=== PATIENT | male | born 1950 | race Caucasian/White ===

== ENCOUNTER → 2016-08-22 | Outpatient (CLI) | payer MEDICARE, BC ==
[2016-08-22 14:52] LABS: Blood Urea Nitrogen 24 mg/dL (9-20); Non-African American GFR(MDRD) >60 (>60 ml/min/1.73 sqM)
--- NOTE | 2016-08-22 16:04 | CT ---
EXAMINATION TYPE: CT urogram wo/w con DATE OF EXAM: 08/22/2016 3:36 PM COMPARISON: NONE HISTORY: Microscopic hematuria CT DLP: 2947.7 mGycm Automated exposure control for dose reduction was used. CONTRAST: Performed with IV Contrast, patient injected with 100 mL of Omnipaque 350. TECHNIQUE: Axial images 5 mm thick sections. Reconstructed images in the coronal plane. Delayed image s were obtained. Three-D reconstructed images of the collecting systems was performed. This was perfo rmed on a separate computer by the technologist. FINDINGS: Limited CT sections are obtained the lung bases which are clear CT ABDOMEN: Liver spleen pancreas gallbladder and adrenal glands appear normal. Aorta and inferior ve na cava are unremarkable. Kidneys appear normal without obvious masses or cysts. Loops of bowel witho ut contrast appear normal. Attention is paid to the renal collecting system. No hydronephrosis is evident. Ureters follow a norm al caliber course and contour to the urinary bladder. Urinary bladder fills normally. The distal left ureter is not well visualized during this exam. No dilated ureter however is evident. No suspicious filling defects are evident. IMPRESSION: 1. Visualized renal collecting system is unremarkable.
== END | disposition home or self-care (01) ==
LOC: RADCTMAIN 14:13
PROVIDERS: ATTEND Urology
DX: R31.29 Other microscopic hematuria (principal)
CPT/HCPCS: 82565; 84520; 74178; 74400; Q9967

== ENCOUNTER 2019-09-14 00:46 | Inpatient (IN) | payer MEDICARE ==
--- NOTE | 2019-09-14 00:53 | ED ---
Arrhythmia/Palpitations HPI - General Stated Complaint: abn pulse rate Time Seen by Provider: 09/14/19 00:50 - History of Present Illness Initial Comments: Sergio is a pleasant 69-year-old woman with no significant cardiac history who presents the ER today as a transfer from outside facility. Patient presents earlier in the evening he could feel his heart racing, he attempted check his blood pressure and noted that his pulse was in the 140s at which time he sought care at an outside hospital was found to be in new onset atrial fibrillation. Patient was started on heparin and low-dose Cardizem. Patient's heart rate improving with subsequent transferred here for evaluation by cardiology. does note that he was admitted to an outside hospital last month for evaluation of dizziness and lightheadedness, during that evaluation he was noted to be bradycardic while sleeping but no other arrhythmias were identified. - Related Data Allergies Allergy/AdvReac Type Severity Reaction Status Date / Time cat dander Allergy Itching Verified 09/14/19 01:12 ragweed pollen Allergy Wheezing Verified 09/14/19 01:11 Review of Systems ROS Statement: Those systems with pertinent positive or pertinent negative responses have been documented in the HPI. ROS Other: All systems not noted in ROS Statement are negative. General Exam - General Exam Comments Initial Comments: Physical Exam GENERAL: Patient is well-developed and well-nourished. Patient is nontoxic and well- hydrated and is in no distress. HENT: Normocephalic, Atraumatic. EYES: PERRL, EOMI PULMONARY: Unlabored respirations. No audible rales rhonchi or wheezing was noted. CARDIOVASCULAR: Irregularly irregular ABDOMEN: Soft and nontender with normal bowel sounds. SKIN: Skin is clear with no lesions or rashes and otherwise unremarkable. : Deferred NEUROLOGIC: Patient is alert and oriented x3. Moving all extremities spontaneously MUSCULOSKELETAL: Normal extremities with adequate strength and full range of motion. No lower extremity swelling or edema. No calf tenderness. PSYCHIATRIC: Normal psychiatric evaluation. Course Vital Signs 09/14/19 09/14/19 09/14/19 01:04 01:10 02:05 Temperature 98.7 F Pulse Rate 81 71 Pulse Rate [ 81 Reaming Machine Tender ] Respiratory 18 16 Rate Blood Pressure 124/80 117/82 O2 Sat by Pulse 96 96 Oximetry 09/14/19 09/14/19 02:35 03:05 Temperature Pulse Rate 67 71 Pulse Rate [ Reaming Machine Tender ] Respiratory 16 16 Rate Blood Pressure 122/84 128/77 O2 Sat by Pulse 96 97 Oximetry EKG Findings - EKG Comments: EKG Findings:: EKG was obtained due to new onset atrial fibrillation, EKG obtained at 1:08 AM, rate is 69 rhythm is narrow complex irregularly irregular consistent with atrial fibrillation. No acute ST elevations or depressions no evidence of acute ischemia or infarction. Medical Decision Making - Medical Decision Making The patient was seen and evaluated history is obtained from the patient and transferring facility 69-year-old gentleman no cardiac history presents at outside facility with new onset atrial fibrillation and RVR, rate has been controlled with IV Cardizem, patient is heparinized Patient currently asymptomatic with no complaints Repeat labs will be ordered, Cardizem continued, heparin continued without boluses he is arty received bolus prior to arrival Repeat labs were reviewed, patient be continued on heparin Patient care was discussed with Dr. Smith who accepts the admission with consult to cardiology - Lab Data Result diagrams: 09/14/19 01:17 09/14/19 01:17 Lab Results 09/14/19 09/14/19 09/14/19 Range/Units 01:17 01:17 01:17 WBC 6.7 (3.8-10.6) k/uL RBC 4.84 (4.30-5.90) m/uL Hgb 16.4 (13.0-17.5) gm/dL Hct 48.3 (39.0-53.0) % MCV 99.8 (80.0-100.0) fL MCH 33.9 (25.0-35.0) pg MCHC 33.9 (31.0-37.0) g/dL RDW 13.4 (11.5-15.5) % Plt Count 190 (150-450) k/uL Neutrophils % 47 % Lymphocytes % 33 % Monocytes % 12 % Eosinophils % 5 % Basophils % 1 % Neutrophils # 3.1 (1.3-7.7) k/uL Lymphocytes # 2.2 (1.0-4.8) k/uL Monocytes # 0.8 (0-1.0) k/uL Eosinophils # 0.3 (0-0.7) k/uL Basophils # 0.0 (0-0.2) k/uL PT (9.0-12.0) sec INR (<1.2) APTT (22.0-30.0) sec Sodium 138 (137-145) mmol/L Potassium 3.7 (3.5-5.1) mmol/L Chloride 106 (98-107) mmol/L Carbon Dioxide 23 (22-30) mmol/L Anion Gap 9 mmol/L BUN 28 H (9-20) mg/dL Creatinine 0.92 (0.66-1.25) mg/dL Est GFR (CKD-EPI)AfAm >90 (>60 ml/min/1.73 sqM) Est GFR (CKD-EPI)NonAf 85 (>60 ml/min/1.73 sqM) Glucose 115 H (74-99) mg/dL Calcium 9.2 (8.4-10.2) mg/dL Magnesium 2.2 (1.6-2.3) mg/dL Total Bilirubin 0.5 (0.2-1.3) mg/dL AST 41 (17-59) U/L ALT 28 (4-49) U/L Alkaline Phosphatase 79 (38-126) U/L Troponin I (0.000-0.034) ng/mL NT-Pro-B Natriuret Pep 262 pg/mL Total Protein 6.9 (6.3-8.2) g/dL Albumin 4.0 (3.5-5.0) g/dL 09/14/19 09/14/19 Range/Units 01:17 01:17 WBC (3.8-10.6) k/uL RBC (4.30-5.90) m/uL Hgb (13.0-17.5) gm/dL Hct (39.0-53.0) % MCV (80.0-100.0) fL MCH (25.0-35.0) pg MCHC (31.0-37.0) g/dL RDW (11.5-15.5) % Plt Count (150-450) k/uL Neutrophils % % Lymphocytes % % Monocytes % % Eosinophils % % Basophils % % Neutrophils # (1.3-7.7) k/uL Lymphocytes # (1.0-4.8) k/uL Monocytes # (0-1.0) k/uL Eosinophils # (0-0.7) k/uL Basophils # (0-0.2) k/uL PT 10.3 (9.0-12.0) sec INR 1.0 (<1.2) APTT 40.1 H (22.0-30.0) sec Sodium (137-145) mmol/L Potassium (3.5-5.1) mmol/L Chloride (98-107) mmol/L Carbon Dioxide (22-30) mmol/L Anion Gap mmol/L BUN (9-20) mg/dL Creatinine (0.66-1.25) mg/dL Est GFR (CKD-EPI)AfAm (>60 ml/min/1.73 sqM) Est GFR (CKD-EPI)NonAf (>60 ml/min/1.73 sqM) Glucose (74-99) mg/dL Calcium (8.4-10.2) mg/dL Magnesium (1.6-2.3) mg/dL Total Bilirubin (0.2-1.3) mg/dL AST (17-59) U/L ALT (4-49) U/L Alkaline Phosphatase (38-126) U/L Troponin I <0.012 (0.000-0.034) ng/mL NT-Pro-B Natriuret Pep pg/mL Total Protein (6.3-8.2) g/dL Albumin (3.5-5.0) g/dL Disposition Clinical Impression: New onset a-fib Disposition: ADMITTED IP TO THIS [facility] Condition: Serious Is patient prescribed a controlled substance at d/c from ED?: No
[2019-09-14] MEDS ORDERED: DILTIAZEM 125 MG in SODIUM CHLORIDE 0.9% 100 ML IV SCH (01:00)
[2019-09-14] MEDS ORDERED: HEPARIN SOD,PORK IN 0.45% NACL 25,000 UNIT in 0.45% NACL 1 250ML.BAG IV SCH (01:00)
[2019-09-14 01:39] LABS: ALT 28 U/L (4-49); AST 41 U/L (17-59); African American GFR (CKD) >90 (>60 ml/min/1.73 sqM); Alkaline Phosphatase 79 U/L (38-126); Anion Gap 9 mmol/L; Blood Urea Nitrogen 28 mg/dL (9-20); Calcium 9.2 mg/dL (8.4-10.2); Carbon Dioxide 23 mmol/L (22-30); Chloride 106 mmol/L (98-107); Glucose 115 mg/dL (74-99); Magnesium 2.2 mg/dL (1.6-2.3); Non-African American GFR(CKD) 85 (>60 ml/min/1.73 sqM); Potassium 3.7 mmol/L (3.5-5.1); Sodium 138 mmol/L (137-145); Total Bilirubin 0.5 mg/dL (0.2-1.3); Total Protein 6.9 g/dL (6.3-8.2)
[2019-09-14 01:41] LABS: Basophils % (A) 1 %; Eosinophils # (A) 0.3 k/uL (0-0.7); Eosinophils % (A) 5 %; HCT 48.3 % (39.0-53.0); HGB 16.4 gm/dL (13.0-17.5); Lymphocytes # (A) 2.2 k/uL (1.0-4.8); Lymphocytes % (A) 33 %; MCH 33.9 pg (25.0-35.0); MCHC 33.9 g/dL (31.0-37.0); MCV 99.8 fL (80.0-100.0); Mean Platelet Volume 7.3; Monocytes # (A) 0.8 k/uL (0-1.0); Monocytes % (A) 12 %; Neutrophils # (A) 3.1 k/uL (1.3-7.7); Neutrophils % (A) 47 %; Platelet Count 190 k/uL (150-450); RBC 4.84 m/uL (4.30-5.90); RDW 13.4 % (11.5-15.5); WBC 6.7 k/uL (3.8-10.6)
[2019-09-14 01:46] LABS: Partial Thromboplastin Time 40.1 sec (22.0-30.0); Prothrombin Time 10.3 sec (9.0-12.0)
[2019-09-14] MEDS ORDERED: NALOXONE 0.4 MG/ML 1 ML VIAL IV PRN (02:45)
--- NOTE | 2019-09-14 04:09 | P.HPIM ---
History of Present Illness H&P Date: 09/14/19 Chief Complaint: Heart racing The patient is a 69-year-old male with a past medical history of essential hypertension and dyslipidemia who presents to the ER after being transferred here from [facility] unit earlier presented today at around 8 PM with chief complaint of heart racing. The patient reports sensation of his heart racing but denies any chest pain, denies shortness of breath, denies lightheadedness dizziness or presyncope, denies lower extremity swelling. The patient mentions that he has been in his usual state of health with the exception of a mild case of vertigo a few weeks ago for which she was started on Antivert with that time he had presented with dizziness and lightheadedness and was noted to be bradycardic, no arrhythmias were identified at that time. The patient reported that he attempted to use his home blood pressure cuff and realizes blood pressure was normal but felt that his pulse was racing. Patient was seen and evaluated at [facility] and was started on Cardizem and heparin and transferred here for cardiology consultation, EKG here showed atrial fibrillation with a heart rate of 69, troponin was less than 0.012 and NT proBNP was 262 Review of Systems Pertinent positives per HPI all other review of system otherwise negative Medications and Allergies Allergies Allergy/AdvReac Type Severity Reaction Status Date / Time cat dander Allergy Itching Verified 09/14/19 01:12 ragweed pollen Allergy Wheezing Verified 09/14/19 01:11 Physical Exam Vitals: Vital Signs Temp Pulse Pulse Resp BP Pulse Ox 09/14/19 03:05 71 16 128/77 97 09/14/19 02:35 67 16 122/84 96 09/14/19 02:05 71 16 117/82 96 09/14/19 01:10 81 09/14/19 01:04 98.7 F 81 18 124/80 96 Intake and Output 09/13/19 09/13/19 09/14/19 14:59 22:59 06:59 Other: Weight 93.667 kg Constitutional: No acute distress, conversant, pleasant Eyes: Anicteric sclerae, moist conjunctiva, no lid-lag, PERRLA ENMT: NC/AT,Oropharynx clear, no erythema, exudates Neck:Supple, FROM, no masses, or JVD, No carotid bruits; No thyromegaly Lungs: Clear to auscultation, Clear to percussion, Normal respiratory effort, no accessory muscle use Cardiovascular: Irregularly irregular, No murmurs, gallops, or rubs no peripheral edema Abdominal: Soft Nontender, nom distended, no guarding, no rebound or rigidity, Normoactive bowel sounds No hepatomegaly, No splenomegaly, No palpable mass No abdominal wall hernia noted Skin: Normal temperature, tone, texture, turgor, No induration No subcutaneous nodules, No rash, lesions, No ulcers Extremities:No digital cyanosis No clubbing, Pedal pulses intact and symmetrical Radial pulses intact and symmetrical Normal gait and station, No calf tenderness Psychiatric: Alert and oriented to person, place and time, Appropriate affect Intact judgement Neuro: Muscles Strength 5/5 in all 4 extremities, Sensation to light touch grossly present throughout, Cranial nerves II-XII grossly intact. No focal sensory deficits Results CBC & Chem 7: 09/14/19 01:17 09/14/19 01:17 Labs: Abnormal Lab Results - Last 24 Hours (Table) 09/14/19 09/14/19 Range/Units 01:17 01:17 APTT 40.1 H (22.0-30.0) sec BUN 28 H (9-20) mg/dL Glucose 115 H (74-99) mg/dL Assessment and Plan Assessment: New-onset atrial fibrillation Essential hypertension Hyperlipidemia Plan: The patient is admitted anticipated greater than 2 midnight stay with new onset A. fib now with rate controlled on Cardizem drip after being started on heparin and transferred here. The patient is continued on Cardizem and heparin, will check a TSH order echocardiogram and follow-up any further recommendations by cardiology. Patient will likely transition to DOACS in the morning for CVA prophylaxis as he has [id number] VASC score of 2. Continue to follow patient's clinical course. CODE STATUS: Full code Discussed plan of care with: Patient and his Anticipated discharge place: Home Greater than 60 minutes was spent in evaluation of this complex patient
[2019-09-14 07:44] VITALS: RESP 18
--- NOTE | 2019-09-14 10:47 | P.CRDCN ---
History of Present Illness Consult date: 09/14/19 Requesting physician: Lei Smith Consult reason: atrial fibrillation Chief complaint: Palpitations History of present illness: This is a pleasant 69-year-old gentleman with history of hypertension, hyperlipidemia, diet-controlled diabetes, nonsmoker, has one alcoholic beverage per day. 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 He states that he was sitting watching TV and noticed his heart racing fast, he does have a blood pressure cuff at his bedside, it documented that his heart rate was up in the 120s, and then down to the 100 range and then back up into the 120s. He was quite surprised, as he was in the hospital in July with symptoms of severe dizziness and was noted at that time to be quite bradycardic according to him. He was discharged from [facility] at that time with the diagnosis of vertigo. Patient presented to [facility] and was ultimately transferred here for further evaluation and treatment. His blood pressure at [place] 156/90 with a heart rate in the 90s, afebrile. White blood cell count 6.5, hemoglobin 16, hematocrit 46.6, platelet count 170, sodium 139, potassium 3.7, chloride 103, CO2 26, BUN 27, creatinine 1.1. Magnesium 2.2, BNP level 138, troponin 0.012, TSH 1.8. Chest x-ray was unremarkable. Patient was initiated on IV Cardizem and IV heparin at [facility] and subsequently transferred here for further treatment. At the time of my examination the patient was seen in the emergency room continues to be in atrial fibrillation, his heart rate this morning is in the 60s while on the Cardizem drip at 5 mg per hour. He overall feels well, back to his normal self. Blood pressure 113/78, heart rate in the 60s, 97% on room air. White blood cell count 6.7, hemoglobin 16.4, platelet count 190. Sodium 138, potassium 3.7, BUN 28, creatinine 0.9, magnesium 2.2. Troponin 0.012. TSH 2.7. Past Medical History Past Medical History: Asthma, COPD, Diabetes Mellitus, Hyperlipidemia, Hypertension, Pneumonia Additional Past Medical History / Comment(s): Pt admitted about one month ago to [facility] with vertigo/lightheadedness found to have bradycardia with sleep, NIDDM diet controlled, bronchitis, trace hematuria, cervical pinched nerve/affects R shoulder-pain, L knee pain past month. History of Any Multi-Drug Resistant Organisms: None Reported Past Surgical History: Orthopedic Surgery, Tonsillectomy Additional Past Surgical History / Comment(s): Cystoscopy, R knee patella fracture with surgical repair, colonoscopy. Past Anesthesia/Blood Transfusion Reactions: No Reported Reaction Additional Past Anesthesia/Blood Transfusion Reaction / Comment(s): Clausterphobia Additional Psychological History / Comment(s): Clausterphobia. Pt resides with his spouse. He is independent. Smoking Status: Former smoker Past Alcohol Use History: Daily Additional Past Alcohol Use History / Comment(s): Pt started smoking in 1966 and quit in 2011. He drinks one cocktail a day. Past Drug Use History: None Reported - Past Family History Mother Family Medical History: COPD, Dementia Additional Family Medical History / Comment(s): Mother is . She was a smoker. Father Family Medical History: Cancer Additional Family Medical History / Comment(s): Father from lung cancer- he was a smoker and had ETOH abuse. Medications and Allergies Home Medications Medication Instructions Recorded Confirmed Type Ascorbic Acid [Vitamin C] 1,000 mg PO DAILY 09/14/19 09/14/19 History Aspirin 81 mg PO DAILY 09/14/19 09/14/19 History Cholecalciferol [Vitamin D3 (25 1,000 unit PO DAILY 09/14/19 09/14/19 History Mcg = 1000 Iu)] Cyanocobalamin (Vitamin B-12) 1,000 mcg PO DAILY 09/14/19 09/14/19 History [Vitamin B-12] Lisinopril [Zestril] 5 mg PO DAILY 09/14/19 09/14/19 History [place]-3 Fatty Acids/Fish Oil [Fish 1 cap PO HS 09/14/19 09/14/19 History Oil 1,000 mg Softgel] [place]-3 Fatty Acids/Fish Oil [Fish 2 cap PO QAM 09/14/19 09/14/19 History Oil 1,000 mg Softgel] Pravastatin Sodium [Pravachol] 20 mg PO HS 09/14/19 09/14/19 History [place] 1,000 mg PO QAM 09/14/19 09/14/19 History [place] 500 mg PO HS 09/14/19 09/14/19 History Allergies Allergy/AdvReac Type Severity Reaction Status Date / Time cat dander Allergy Itching Verified 09/14/19 07:08 ragweed pollen Allergy Wheezing Verified 09/14/19 07:08 Physical Exam Vitals: Vital Signs Temp Pulse Pulse Resp BP Pulse Ox 09/14/19 07:43 98.2 F 62 18 113/79 97 09/14/19 06:09 56 L 16 121/83 97 09/14/19 05:35 97.8 F 63 19 95/61 95 09/14/19 03:05 71 16 128/77 97 09/14/19 02:35 67 16 122/84 96 09/14/19 02:05 71 16 117/82 96 09/14/19 01:10 81 09/14/19 01:04 98.7 F 81 18 124/80 96 Intake and Output 09/13/19 09/14/19 09/14/19 22:59 06:59 14:59 Other: Weight 93.667 kg PHYSICAL EXAMINATION: GENERAL: 69-year-old gentleman in no acute distress at the time of my examination HEENT: Head is atraumatic, normocephalic. Pupils equal, round. Sclera anicter ic. Conjunctiva are clear. Mucous membranes of the mouth are moist. Neck is supple. There is no elevated jugular venous pressure. No carotid bruit is heard. HEART EXAMINATION: Heart S1 and S2 irregularly irregular CHEST EXAMINATION: Lungs are clear to auscultation and precussion. No chest wall tenderness is noted on palpation or with deep breathing. ABDOMEN: Soft, nontender. Bowel sounds are heard. No organomegaly noted. EXTREMITIES: 2+ peripheral pulses with no evidence of peripheral edema and no calf tenderness noted. NEUROLOGIC patient is awake, alert and oriented 3 . . Results 09/14/19 01:17 09/14/19 01:17 Cardiac Enzymes 09/14/19 09/14/19 Range/Units 01:17 01:17 AST 41 (17-59) U/L Troponin I <0.012 (0.000-0.034) ng/mL Coagulation 09/14/19 09/14/19 Range/Units 01:17 06:52 PT 10.3 (9.0-12.0) sec APTT 40.1 H 39.0 H (22.0-30.0) sec CBC 09/14/19 Range/Units 01:17 WBC 6.7 (3.8-10.6) k/uL RBC 4.84 (4.30-5.90) m/uL Hgb 16.4 (13.0-17.5) gm/dL Hct 48.3 (39.0-53.0) % Plt Count 190 (150-450) k/uL Comprehensive Metabolic Panel 09/14/19 Range/Units 01:17 Sodium 138 (137-145) mmol/L Potassium 3.7 (3.5-5.1) mmol/L Chloride 106 (98-107) mmol/L Carbon Dioxide 23 (22-30) mmol/L BUN 28 H (9-20) mg/dL Creatinine 0.92 (0.66-1.25) mg/dL Glucose 115 H (74-99) mg/dL Calcium 9.2 (8.4-10.2) mg/dL AST 41 (17-59) U/L ALT 28 (4-49) U/L Alkaline Phosphatase 79 (38-126) U/L Total Protein 6.9 (6.3-8.2) g/dL Albumin 4.0 (3.5-5.0) g/dL Current Medications Generic Name Dose Route Start Last Admin Trade Name Freq PRN Reason Stop Dose Admin Heparin Sodium/Sodium Chloride 250 mls @ 10.004 mls/hr 09/14/19 01:00 09/14/19 01:15 25,000 unit/ Sodium Chloride IV 10.68 units/kg/hr .Q24H LANDRY 10.004 mls/hr Administration Protocol 10.68 UNITS/KG/HR Diltiazem HCl 125 mg/ Sodium 125 mls @ 5 mls/hr 09/14/19 01:00 09/14/19 01:18 Chloride IV 5 mg/hr .Q24H LANDRY 5 mls/hr Administration 5 MG/HR Naloxone HCl 0.2 mg 09/14/19 02:45 Narcan IV Q2M PRN Opioid Reversal Intake and Output 09/13/19 09/14/19 09/14/19 22:59 06:59 14:59 Other: Weight 93.667 kg 09/14/19 01:17 09/14/19 01:17 EKG Interpretations (text) EKG shows atrial fibrillation with a rapid ventricular response Assessment and Plan Plan: Assessment and plan #1 atrial fibrillation with rapid ventricular response, persistent, of new onset for the patient #2 hypertension #3 diet-controlled diabetes #4 hyperlipidemia Plan We will discontinue the IV Cardizem and start the patient on a beta jason. The patient and his have also been educated regarding the importance of ant icoagulation for stroke prevention, we will start the patient on Eliquis and discontinue the IV heparin. Check a TSH level and obtain an echocardiogram with Doppler study. Further recommendations to follow. DNP note has been reviewed, I agree with a documented findings and plan of care. Patient was seen and examined.
--- NOTE | 2019-09-14 11:00 | ECHOF ---
Referral Reason:A. fib with RVR MEASUREMENTS -------- HEIGHT: 182.9 cm WEIGHT: 93.4 kg BP: RVIDd: 2.9 cm (< 3.3) IVSd: 1.3 cm (0.6 - 1.1) LVIDd: 4.4 cm (3.9 - 5.3) LVPWd: 1.1 cm (0.6 - 1.1) IVSs: 1.5 cm LVIDs: 3.3 cm LVPWs: 1.4 cm LA Diam: 3.8 cm (2.7 - 3.8) Ao Diam: 3.2 cm (2.0 - 3.7) AV Cusp: 2.3 cm (1.5 - 2.6) MV EXCURSION: 20.130 mm (> 18.000) MV EF SLOPE: 99 mm/s (70 - 150) EPSS: 0.2 cm MV E Mykel: 0.61 m/s MV DecT: 166 ms MV A Mykel: 0.02 m/s MV E/A Ratio: 33.23 RAP: 5.00 mmHg RVSP: 15.95 mmHg FINDINGS -------- The rhythm appears to be atrial flutter. This was a technically adequate study. The left ventricular size is normal. There is mild concentric left ventricular hypertrophy. Overa ll left ventricular systolic function is low-normal with, an EF between 50 - 55 %. The right ventricle is normal in size. The left atrial size is normal. The right atrial size is normal. There is mild aortic valve sclerosis. There is no evidence of aortic regurgitation. Mild mitral annular calcification present. Mild mitral regurgitation is present. Mild tricuspid regurgitation present. Right ventricular systolic pressure is normal at < 35 mmHg. There is no evidence of pulmonary hypertension. There is no pulmonic regurgitation present. The aortic root size is normal. Echo free space represents a pericardial fat pad. CONCLUSIONS -------- 1. The rhythm appears to be atrial flutter. 2. This was a technically adequate study. 3. The left ventricular size is normal. 4. There is mild concentric left ventricular hypertrophy. 5. Overall left ventricular systolic function is low-normal with, an EF between 50 - 55 %. 6. The right ventricle is normal in size. 7. The left atrial size is normal. 8. The right atrial size is normal. 9. There is mild aortic valve sclerosis. 10. Mild mitral annular calcification present. 11. Mild mitral regurgitation is present. 12. Mild tricuspid regurgitation present. 13. Right ventricular systolic pressure is normal at < 35 mmHg. 14. There is no evidence of pulmonary hypertension. 15. There is no pulmonic regurgitation present. 16. The aortic root size is normal. 17. Echo free space represents a pericardial fat pad. PAINT [employer]ORATORY TECHNICIAN: Valencia Andres RDCS
--- NOTE | 2019-09-14 11:19 | P.PN ---
Progress Note - Text Progress Note Date: 09/14/19 Patient was seen and examined 69-year-old male with hypertension and dietary controlled diabetes Comes in due to heart racing and palpitations. Was found to have new onset A. fib currently rate controlled. Plan for discharging patient on Eliquis for stroke prophylaxis, metoprolol for rate control, and patient to continue lisinopril for blood pressure control We'll continue to monitor the patient overnight possible discharge in the morning
[2019-09-14] MEDS: APIXABAN 5 MG TAB PO SCH ×2 (12:20→20:09)
[2019-09-14] MEDS: LISINOPRIL 5 MG TAB PO SCH (12:20)
[2019-09-14] MEDS: METOPROLOL TARTRATE 25 MG TAB PO SCH ×2 (12:20→20:09)
[2019-09-14] MEDS ORDERED: PRAVASTATIN SODIUM 20 MG TAB PO SCH (21:00)
[2019-09-15 06:46] LABS: Basophils % (A) 0 %; Eosinophils # (A) 0.3 k/uL (0-0.7); Eosinophils % (A) 4 %; HCT 52.3 % (39.0-53.0); HGB 17.3 gm/dL (13.0-17.5); Lymphocytes # (A) 1.8 k/uL (1.0-4.8); Lymphocytes % (A) 26 %; MCH 33.5 pg (25.0-35.0); MCHC 33.1 g/dL (31.0-37.0); MCV 101.2 fL (80.0-100.0); Macrocytosis Slight; Mean Platelet Volume 7.3; Monocytes # (A) 0.7 k/uL (0-1.0); Monocytes % (A) 11 %; Neutrophils # (A) 3.8 k/uL (1.3-7.7); Neutrophils % (A) 56 %; Platelet Count 188 k/uL (150-450); RBC 5.17 m/uL (4.30-5.90); RDW 13.3 % (11.5-15.5); WBC 6.9 k/uL (3.8-10.6)
[2019-09-15 07:02] LABS: Calcium 9.5 mg/dL (8.4-10.2); Potassium 4.5 mmol/L (3.5-5.1)
[2019-09-15] MEDS ORDERED: ASPIRIN 81 MG PO SCH (09:00)
[2019-09-15] MEDS: LISINOPRIL 5 MG TAB PO SCH (10:23)
[2019-09-15] MEDS: METOPROLOL TARTRATE 25 MG TAB PO SCH (10:23)
[2019-09-15] MEDS: APIXABAN 5 MG TAB PO SCH (10:24)
[2019-09-15 11:45] VITALS: BP 143/81; PULSE 85; TEMP 98.3
--- NOTE | 2019-09-15 12:01 | P.PN ---
Subjective Progress Note Date: 09/15/19 This is a pleasant 69-year-old gentleman with history of hypertension, hyperlipidemia, diet-controlled diabetes, nonsmoker, has one alcoholic beverage per day. 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 He states that he was sitting watching TV and noticed his heart racing fast, he does have a blood pressure cuff at his bedside, it documented that his heart rate was up in the 120s, and then down to the 100 range and then back up into the 120s. He was quite surprised, as he was in the hospital in July with symptoms of severe dizziness and was noted at that time to be quite bradycardic according to him. He was discharged from [facility] at t hat time with the diagnosis of vertigo. Patient presented to [facility] and was ultimately transferred here for further evaluation and treatment. His blood pressure at [facility] 156/90 with a heart rate in the 90s, afebrile. White blood cell count 6.5, hemoglobin 16, hematocrit 46.6, platelet count 170, sodium 139, potassium 3.7, chloride 103, CO2 26, BUN 27, creatinine 1.1. Magnesium 2. 2, BNP level 138, troponin 0.012, TSH 1.8. Chest x-ray was unremarkable. Patient was initiated on IV Cardizem and IV heparin at [facility] and subsequently transferred here for further treatment. At the time of my examination the patient was seen in the emergency room continues to be in atrial fibrillation, his heart rate this morning is in the 60s while on the Cardizem drip at 5 mg per hour. He overall feels well, back to his normal self. Blood pressure 113/78, heart rate in the 60s, 97% on room air. White blood cell count 6.7, hemoglobin 16.4, platelet count 190. Sodium 138, potassium 3.7, BUN 28, creatinine 0.9, magnesium 2.2. Troponin 0.012. TSH 2.7. 09/15/2019 Patient was seen and examined this morning, continues to be in atrial fibrillation with a heart rate in the 70s to 80s. He feels well, he's been up ambulating in the hallway without any difficulty. Blood pressure 125/80 with a heart rate of 70, echocardiogram with Doppler study revealed a normal left ve ntricular systolic function. Patient is on Eliquis 5 mg one tablet by mouth twice a day along with metoprolol 25 mg by mouth twice a day which we will continue. From our perspective he may be able to be discharged home today, we'll make him a follow-up appointment to see Dr. Martinez in the office post discharge. Objective - Vital Signs Vital signs: Vital Signs Temp 98.3 F 09/15/19 11:41 Pulse 85 09/15/19 11:41 Resp 18 09/15/19 11:41 BP 143/81 09/15/19 11:41 Pulse Ox 98 09/15/19 11:41 Intake & Output 09/14/19 09/15/19 09/15/19 18:59 06:59 18:59 Intake Total 600 Balance 600 Weight 93.667 kg 103.1 kg Intake: Oral 600 Other: # Voids 1 1 - Exam PHYSICAL EXAMINATION: GENERAL: 69-year-old gentleman in no acute distress at the time of my examination HEENT: Head is atraumatic, normocephalic. Pupils equal, round. Sclera anicteric. Conjunctiva are clear. Mucous membranes of the mouth are moist. Neck is supple. There is no elevated jugular venous pressure. No carotid bruit is heard. HEART EXAMINATION: Heart S1 and S2 irregularly irregular CHEST EXAMINATION: Lungs are clear to auscultation and precussion. No chest wall tenderness is noted on palpation or with deep breathing. ABDOMEN: Soft, nontender. Bowel sounds are heard. No organomegaly noted. EXTREMITIES: 2+ peripheral pulses with no evidence of peripheral edema and no calf tenderness noted. NEUROLOGIC patient is awake, alert and oriented 3 . - Labs CBC & Chem 7: 09/15/19 06:20 09/15/19 06:20 Labs: Abnormal Lab Results - Last 24 Hours (Table) 09/15/19 09/15/19 Range/Units 06:20 06:20 MCV 101.2 H (80.0-100.0) fL BUN 28 H (9-20) mg/dL Glucose 107 H (74-99) mg/dL Assessment and Plan Plan: Assessment and plan #1 atrial fibrillation with rapid ventricular response, persistent, of new onset for the patient #2 hypertension #3 diet-controlled diabetes #4 hyperlipidemia Plan From cardiology's perspective, patient may be able to be discharged home today. We'll make him a follow-up appointment in the office with Dr. Martinez post discharge. DNP note has been reviewed, I agree with a documented findings and plan of care. Patient was seen and examined.
--- NOTE | 2019-09-15 12:45 | P.DS ---
Providers Date of admission: 09/14/19 02:45 Attending physician: Lei Smith MD Consults: 09/14/19 02:49 Consult Physician Urgent Consulting Provider: [facility] Consult Reason/Comments: new onset afib Do you want consulting provider notified?: Yes, Notify in am Primary care physician: Conrad Verdugo [facility] Course: Final diagnosis at discharge A. fib with RVR new onset Hospital course The patient is a 69-year-old male with a past medical history of essential hypertension , dietary controlled diabetes, and dyslipidemia who presents to the ER after being transferred here from [facility] unit earlier presented today at around 8 PM with chief complaint of heart racing. The patient reports sensation of his heart racing but denies any chest pain, denies shortness of breath, denies lightheadedness dizziness or presyncope, denies lower extremity swelling. The patient mentions that he has been in his usual state of health with the exception of a mild case of vertigo a few weeks ago for which she was started on Antivert with that time he had presented with dizziness and lightheadedness and was noted to be bradycardic, no arrhythmias were identified at that time. The patient reported that he attempted to use his home blood pressure cuff and realizes blood pressure was normal but felt that his pulse was racing. Patient was seen and evaluated at [facility] and was started on Cardizem and heparin and transferred here for cardiology consultation, EKG here showed atrial fibrillation with a heart rate of 69, troponin was less than 0.012 and NT proBNP was 262 Patient was seen and examined Patient reports no chest pain or trouble breathing no further episodes of heart racing Constitutional: vital signs stable, Not in acute distress, pleasant, conversant Lungs: Clear to auscultation bilaterally, clear to percussion, normal respiratory effort Cardiovascular: Regular rate and rhythm, no murmurs, no gallops, no rubs, no peripheral edema Gastrointestinal: Soft, no tenderness to palpation bowel sounds positive Extremities: No digital cyanosis or clubbing, peripheral pulses palpable and equal , no calf muscle tenderness Psych: Alert, oriented to place, person and time, appropriate affect, intact judgment Follow-up with cardiology and primary care doctor discharging patient on Eliquis for stroke prophylaxis, metoprolol for rate c ontrol, and patient to continue lisinopril for blood pressure control echocardiogram showed LVEF 50-55% Consider outpatient sleep study 38 minutes were spent discharging this patient, and more than 50% of the time was spent in counseling the patient and family and in coordinating care. Procedures: Echocardiogram Patient Condition at Discharge: Serious Plan - Discharge Summary Discharge Rx Participant: No New Discharge Prescriptions: New Apixaban [Eliquis] 5 mg PO BID #60 tab Metoprolol Tartrate [Lopressor] 25 mg PO BID #60 tab Continue Cholecalciferol [Vitamin D3 (25 Mcg = 1000 Iu)] 1,000 unit PO DAILY Aspirin 81 mg PO DAILY Ascorbic Acid [Vitamin C] 1,000 mg PO DAILY [place] 1,000 mg PO QAM [place] 500 mg PO HS Natalia-3 Fatty Acids/Fish Oil [Fish Oil 1,000 mg Softgel] 2 cap PO QAM Natalia-3 Fatty Acids/Fish Oil [Fish Oil 1,000 mg Softgel] 1 cap PO HS Pravastatin Sodium [Pravachol] 20 mg PO HS Lisinopril [Zestril] 5 mg PO DAILY Cyanocobalamin (Vitamin B-12) [Vitamin B-12] 1,000 mcg PO DAILY Discharge Medication List Ascorbic Acid [Vitamin C] 1,000 mg PO DAILY 09/14/19 [History] Aspirin 81 mg PO DAILY 09/14/19 [History] Cholecalciferol [Vitamin D3 (25 Mcg = 1000 Iu)] 1,000 unit PO DAILY 09/14/19 [History] Cyanocobalamin (Vitamin B-12) [Vitamin B-12] 1,000 mcg PO DAILY 09/14/19 [History] Lisinopril [Zestril] 5 mg PO DAILY 09/14/19 [History] Natalia-3 Fatty Acids/Fish Oil [Fish Oil 1,000 mg Softgel] 1 cap PO HS 09/14/19 [History] Natalia-3 Fatty Acids/Fish Oil [Fish Oil 1,000 mg Softgel] 2 cap PO QAM 09/14/19 [History] Pravastatin Sodium [Pravachol] 20 mg PO HS 09/14/19 [History] [place] 1,000 mg PO QAM 09/14/19 [History] [place] 500 mg PO HS 09/14/19 [History] Apixaban [Eliquis] 5 mg PO BID #60 tab 09/15/19 [Rx] Metoprolol Tartrate [Lopressor] 25 mg PO BID #60 tab 09/15/19 [Rx] Follow up Appointment(s)/Referral(s): Solo Curtis MD [STAFF PHYSICIAN] - 1 Week Conrad Chen MD [Primary Care Provider] - 1-2 days Reena Dunham MD [STAFF PHYSICIAN] - 1 Week Patient Instructions/Handouts: A-fib (Atrial Fibrillation) (ED), Sleep Apnea (DC) Activity/Diet/Wound Care/Special Instructions: Eliquis filled at [facility] will be $45/month - free 30 day coupon applied. Discharge Disposition: HOME SELF-CARE Plan of Treatment: consider getting a sleep study
[2019-09-15] MEDS ORDERED: METOPROLOL TARTRATE 50 MG TAB PO SCH (21:00)
== END 2019-09-15 14:50 | disposition home or self-care (01) | DRG 310 ==
LOC: EC 00:46 → 3SCARD 02:45
PROVIDERS: ADMIT Family Medicine; ATTEND Family Medicine
DX: I48.91 Unspecified atrial fibrillation (principal); I10 Essential (primary) hypertension; E78.5 Hyperlipidemia, unspecified; E11.9 Type 2 diabetes mellitus without complications; J44.9 Chronic obstructive pulmonary disease, unspecified; Z79.01 Long term (current) use of anticoagulants; Z79.82 Long term (current) use of aspirin; Z79.899 Other long term (current) drug therapy; Z80.1 Family history of malignant neoplasm of trachea, bronchus and lung; Z82.5 Family history of asthma and other chronic lower respiratory diseases; Z87.891 Personal history of nicotine dependence; Z82.0 Family history of epilepsy and other diseases of the nervous system; Z81.1 Family history of alcohol abuse and dependence; Z90.49 Acquired absence of other specified parts of digestive tract; F40.240 Claustrophobia; Z87.01 Personal history of pneumonia (recurrent)
CPT/HCPCS: 36415; 80048; 80053; 83735; 83880; 84443; 84484; 85025; 85610; 85730; 93005; 93306; 96365; 96366; 99285